=== PATIENT | male | born 1945 | race Caucasian/White ===

== ENCOUNTER 2016-10-28 07:59 | Day surgery (SDC) | payer MEDICARE, BC ==
[2016-10-28 09:33] VITALS: O2SAT 96
[2016-10-28 09:49] VITALS: BP 129/72; PULSE 55; RESP 18; TEMP 97.5
== END 2016-10-28 10:10 | disposition home or self-care (01) | DRG 951 ==
LOC: SURG 07:59
PROVIDERS: ATTEND Surgery
DX: Z12.11 Encounter for screening for malignant neoplasm of colon (principal); D12.3 Benign neoplasm of transverse colon; Z86.010 Personal history of colon polyps; K57.30 Diverticulosis of large intestine without perforation or abscess without bleeding
CPT/HCPCS: J2001; J2704